=== PATIENT | female | born 1990 | race Caucasian/White ===

== ENCOUNTER 2017-05-17 19:40 | Emergency (ER) | payer SELFPAY ==
[~2017-05-17] VITALS: Ht 160 cm; Wt 55.0 kg
[2017-05-17 19:45] VITALS: BP 121/75
== END 2017-05-17 21:40 | disposition left against medical advice (07) ==
LOC: ER 20:15
DX: H57.10 Ocular pain, unspecified eye (principal); Z53.21 Procedure and treatment not carried out due to patient leaving prior to being seen by health care provider